=== PATIENT | female | born 1975 | race Caucasian/White ===

== ENCOUNTER → 2017-04-19 | Outpatient (CLI) | payer OTHER ==
[~2017-04-19] MED LIST: METO-157 PO; MULT-506 PO; PRENTAB26 PO
== END | disposition home or self-care (01) ==
LOC: C.PAPS 13:41
PROVIDERS: ATTEND Obstetrics & Gynecology
DX: Z01.419 Encounter for gynecological examination (general) (routine) without abnormal findings (principal)

== ENCOUNTER → 2018-05-10 | Outpatient (CLI) | payer OTHER ==
[~2018-05-10] MED LIST changes: +IBUP-103 PO
== END | disposition home or self-care (01) ==
LOC: C.CTS 20:43
PROVIDERS: ATTEND Internal Medicine
DX: Z01.89 Encounter for other specified special examinations (principal)

== ENCOUNTER → 2018-05-16 | Outpatient (CLI) | payer OTHER ==
--- NOTE | 2018-05-10 20:46 | DIAGNOSTIC IMAGING REPORT ---
HEAD CT NONCONTRAST CT DOSE: 537.48 mGy.cm HISTORY: Difficulty speaking. STROKE LIKE SYMPTOMS TECHNIQUE: Multiaxial CT images of the head were performed without the use of intravenous contrast. Automated exposure control was utilized for this study. A dose lowering technique was utilized adhering to the principles of ALARA. Comparison: None. Findings: Small retention cysts within the left sphenoid sinus. The mastoid air cells are clear. The calvarium and skull base are intact. The ventricles and sulci are within normal limits. There is no mass, hematoma, midline shift, or acute infarct. Impression: No acute intracranial abnormality. Electronically signed by: Venkatesh Mayer M.D. 05/10/2018 8:45 PM Dictated Date/Time: 05/10/2018 8:43 PM
[~2018-05-16] MED LIST changes: -METO-157 PO; -MULT-506 PO; -PRENTAB26 PO
--- NOTE | 2018-05-16 14:37 | DIAGNOSTIC IMAGING REPORT ---
CAROTID DOPPLER NECK ART HISTORY: Mental status change R29.90 Stroke-like [id number] COMPARISON: None. TECHNIQUE: Real-time, grayscale, and color Doppler sonography of the carotid arteries was performed. Imaging reviewed in the transverse and longitudinal planes. All measurements were calculated based on NASCET criteria. FINDINGS: Antegrade flow is seen in the bilateral vertebral arteries. The brachial pressures are hemodynamically similar. Mild plaque formation bilaterally The peak systolic velocity within the right ICA is 98. The right systolic ratio is 0.7. The peak systolic velocity within the left ICA is 89. The left systolic ratio is 0.8. IMPRESSION: No hemodynamically significant stenosis seen within the carotid arteries. Mild plaque formation bilaterally The above report was generated using voice recognition software. It may contain grammatical, syntax or spelling errors. Electronically signed by: Jaylen Ramirez M.D. 05/16/2018 2:36 PM Dictated Date/Time: 05/16/2018 2:34 PM
== END | disposition home or self-care (01) ==
LOC: C.ULTR 13:48
PROVIDERS: ATTEND Internal Medicine
DX: R29.90 Unspecified symptoms and signs involving the nervous system (principal)